=== PATIENT | male | born 1960 | race Caucasian/White ===

== ENCOUNTER 2021-03-04 12:28 | Observation (INO) | payer OTHER ==
[2021-03-04] MEDS ORDERED: SODIUM CHLORIDE 0.9% 1,000 ML IV ONE ×2 (12:41→13:57)
--- NOTE | 2021-03-04 12:49 | ED ---
General Adult HPI - General Chief complaint: Alcohol Stated complaint: ETOH Time Seen by Provider: 03/04/21 12:30 Source: patient, EMS, RN notes reviewed, old records reviewed Mode of arrival: EMS Limitations: no limitations - History of Present Illness Initial comments: This is a 60-year-old male who presents to the emergency department because he went to [facility] and wanted to be admitted but they felt as though he was too intoxicated. Patient admits to having drank a bunch of fireball and beer prior to going in because he wanted one more bolus prior to going to [facility] for rehabilitation. Patient denies headache patient denies numbness weakness. Patient denies lightheadedness or dizziness. Patient denies chest pain palpitations difficulty breathing shortness breath. Patient denies any recent fever chills or cough. Patient denies any nausea vomiting or diarrhea. - Related Data Allergies Allergy/AdvReac Type Severity Reaction Status Date / Time No Known Allergies Allergy Verified 03/04/21 12:41 Review of Systems ROS Statement: Those systems with pertinent positive or pertinent negative responses have been documented in the HPI. ROS Other: All systems not noted in ROS Statement are negative. Past Medical History Past Medical History: No Reported History History of Any Multi-Drug Resistant Organisms: None Reported Past Surgical History: Cholecystectomy Smoking Status: Current every day smoker Past Alcohol Use History: Abuse, Daily Past Drug Use History: None Reported General Exam - General Exam Comments Initial Comments: GENERAL: Patient is well-developed and well-nourished. Patient is nontoxic and well- hydrated and is in no acute distress. Patient appears intoxicated. ENT: Neck is soft and supple. No significant lymphadenopathy is noted. Oropharynx is clear. Moist mucous membranes. Neck has full range of motion without eliciting any pain. EYES: The sclera were anicteric and conjunctiva were pink and moist. Extraocular movements were intact and pupils were equal round and reactive to light. Eyelids were unremarkable. PULMONARY: Unlabored respirations. Good breath sounds bilaterally. No audible rales rhonchi or wheezing was noted. CARDIOVASCULAR: There is a regular rate and rhythm without any murmurs gallops or rubs. ABDOMEN: Soft and nontender with normal bowel sounds. SKIN: Skin is clear with no lesions or rashes and otherwise unremarkable. NEUROLOGIC: Patient is alert and oriented x3. Cranial nerves II through XII are grossly intact. Motor and sensory are also intact. Normal speech, volume and content. Symmetrical smile. MUSCULOSKELETAL: Normal extremities with adequate strength and full range of motion. LYMPHATICS: No significant lymphadenopathy is noted PSYCHIATRIC: Normal psychiatric evaluation. Limitations: no limitations Course Vital Signs 03/04/21 12:31 Temperature 98.1 F Pulse Rate 80 Respiratory 17 Rate Blood Pressure 137/84 O2 Sat by Pulse 97 Oximetry Medical Decision Making - Medical Decision Making Patient was given a liter of normal saline. Patient was started on a banana bag at 250 mL an hour. Patient was also given Ativan. I spoke with some physicians agreed to admit the patient admitted the patient wrote admitting orders. - Lab Data Result diagrams: 03/04/21 12:53 03/04/21 12:53 Lab Results 03/04/21 03/04/21 03/04/21 Range/Units 12:53 12:53 12:53 WBC 8.8 (3.8-10.6) k/uL RBC 4.18 L (4.30-5.90) m/uL Hgb 14.0 (13.0-17.5) gm/dL Hct 39.5 (39.0-53.0) % MCV 94.5 (80.0-100.0) fL MCH 33.4 (25.0-35.0) pg MCHC 35.3 (31.0-37.0) g/dL RDW 12.5 (11.5-15.5) % Plt Count 167 (150-450) k/uL MPV 7.3 Neutrophils % 49 % Lymphocytes % 33 % Monocytes % 9 % Eosinophils % 5 % Basophils % 1 % Neutrophils # 4.4 (1.3-7.7) k/uL Lymphocytes # 2.9 (1.0-4.8) k/uL Monocytes # 0.8 (0-1.0) k/uL Eosinophils # 0.5 (0-0.7) k/uL Basophils # 0.1 (0-0.2) k/uL Sodium 139 (137-145) mmol/L Potassium 3.4 L (3.5-5.1) mmol/L Chloride 106 (98-107) mmol/L Carbon Dioxide 25 (22-30) mmol/L Anion Gap 8 mmol/L BUN 13 (9-20) mg/dL Creatinine 0.71 (0.66-1.25) mg/dL Est GFR (CKD-EPI)AfAm >90 (>60 ml/min/1.73 sqM) Est GFR (CKD-EPI)NonAf >90 (>60 ml/min/1.73 sqM) Glucose 106 H (74-99) mg/dL Calcium 7.8 L (8.4-10.2) mg/dL Total Bilirubin 0.7 (0.2-1.3) mg/dL AST 82 H (17-59) U/L ALT 61 H (4-49) U/L Alkaline Phosphatase 77 (38-126) U/L Total Protein 6.7 (6.3-8.2) g/dL Albumin 3.7 (3.5-5.0) g/dL Serum Alcohol 320 H* mg/dL Coronavirus (PCR) Not Detected (Not Detectd) Disposition Clinical Impression: Alcohol intoxication Disposition: ADMITTED IP TO THIS [facility] Referrals: None,Stated [Primary Care Provider] - 1-2 days Time of Disposition: 13:56
[2021-03-04] MEDS ORDERED: SODIUM CHLORIDE 0.9% 1,000 ML with MVI, ADULT NO.4 WITH VIT K 10 ML, THIAMINE 100 MG, F... IV ONE ×4 (13:00)
[2021-03-04 13:13] LABS: Basophils # (A) 0.1 k/uL (0-0.2); Basophils % (A) 1 %; Eosinophils # (A) 0.5 k/uL (0-0.7); Eosinophils % (A) 5 %; HCT 39.5 % (39.0-53.0); Lymphocytes # (A) 2.9 k/uL (1.0-4.8); Lymphocytes % (A) 33 %; MCH 33.4 pg (25.0-35.0); MCHC 35.3 g/dL (31.0-37.0); MCV 94.5 fL (80.0-100.0); Mean Platelet Volume 7.3; Monocytes # (A) 0.8 k/uL (0-1.0); Monocytes % (A) 9 %; Neutrophils # (A) 4.4 k/uL (1.3-7.7); Neutrophils % (A) 49 %; Platelet Count 167 k/uL (150-450); RBC 4.18 m/uL (4.30-5.90); RDW 12.5 % (11.5-15.5); WBC 8.8 k/uL (3.8-10.6)
[2021-03-04 13:27] LABS: ALT 61 U/L (4-49); AST 82 U/L (17-59); African American GFR (CKD) >90 (>60 ml/min/1.73 sqM); Albumin 3.7 g/dL (3.5-5.0); Alkaline Phosphatase 77 U/L (38-126); Anion Gap 8 mmol/L; Blood Urea Nitrogen 13 mg/dL (9-20); Calcium 7.8 mg/dL (8.4-10.2); Carbon Dioxide 25 mmol/L (22-30); Chloride 106 mmol/L (98-107); Glucose 106 mg/dL (74-99); Non-African American GFR(CKD) >90 (>60 ml/min/1.73 sqM); Potassium 3.4 mmol/L (3.5-5.1); Sodium 139 mmol/L (137-145); Total Bilirubin 0.7 mg/dL (0.2-1.3); Total Protein 6.7 g/dL (6.3-8.2)
[2021-03-04 13:53] LABS: Alcohol 320 mg/dL
[2021-03-04] MEDS ORDERED: LORazepam 2 MG/ML INJ IV STA (13:58)
[2021-03-04] MEDS ORDERED: THIAMINE 100 MG/ML 2 ML VIAL IM STA (13:58)
[2021-03-04] MEDS ORDERED: LORazepam 2 MG/ML INJ IV PRN ×2 (13:58)
[2021-03-04] MEDS ORDERED: DEXTROSE 5%-0.45% NACL 2,000 ML IV ONE (14:41)
[2021-03-04] MEDS ORDERED: POTASSIUM CHLORIDE ER 20 MEQ TAB.ER PO STA (14:43)
--- NOTE | 2021-03-04 14:46 | P.HPIM ---
History of Present Illness H&P Date: 03/04/21 Chief Complaint: Alcohol intoxication This is a 60-year-old male with no significant past medical history other than heavy alcohol abuse who presented to the emergency room with alcohol intoxication. Patient said that he usually drinks approximately 7-8 beers per day. He tried to cut down recently been started having shaking at home. He went to [place] today seeking had that was found to have an elevated blood alcohol level and was sent to the emergency room. Patient is otherwise feeling well. He does not have any symptoms of withdrawal at this time. He denies any headache or abdominal pain. He does not take any prescription medication at home. He denies any known medical history. He smokes approximately one pack of cigarettes per day. Lab work in the emergency room was within acceptable range. Patient will be placed on observation Review of Systems Review of system: 14 points review of systems were obtained and were negative except to what were mentioned in the HPI. Past Medical History Past Medical History: No Reported History History of Any Multi-Drug Resistant Organisms: None Reported Past Surgical History: Cholecystectomy Smoking Status: Current every day smoker Past Alcohol Use History: Abuse, Daily Past Drug Use History: None Reported Medications and Allergies Home Medications Medication Instructions Recorded Confirmed Type No Known Home Medications 03/04/21 03/04/21 History Allergies Allergy/AdvReac Type Severity Reaction Status Date / Time No Known Allergies Allergy Verified 03/04/21 14:10 Physical Exam Vitals: Vital Signs Temp Pulse Resp BP Pulse Ox 03/04/21 12:31 98.1 F 80 17 137/84 97 Intake and Output 03/03/21 03/04/21 03/04/21 22:59 06:59 14:59 Other: Weight 90.718 kg General: The patient is awake and alert, in no distress Eye: there is normal conjunctiva bilaterally. Neck: The neck is supple, there is no JVD. Cardiovascular: Normal S1-S2, no S3-S4, no murmurs. Respiratory: Lungs clear to auscultation bilaterally Gastrointestinal: Abdomen is soft, nontender Musculoskeletal: There is no pedal edema. Neurological:. Speech is normal. Skin: Skin is warm and dry Results CBC & Chem 7: 03/04/21 12:53 03/04/21 12:53 Labs: Abnormal Lab Results - Last 24 Hours (Table) 03/04/21 03/04/21 Range/Units 12:53 12:53 RBC 4.18 L (4.30-5.90) m/uL Potassium 3.4 L (3.5-5.1) mmol/L Glucose 106 H (74-99) mg/dL Calcium 7.8 L (8.4-10.2) mg/dL AST 82 H (17-59) U/L ALT 61 H (4-49) U/L Serum Alcohol 320 H* mg/dL Assessment and Plan Assessment: This is a 60-year-old male with no significant past medical history other than daily alcohol abuse who presented to the emergency room with alcohol intoxication. Patient was evaluated in the ER and will be placed in observation for further management of his medical problems noted below. 1. Alcohol intoxication, patient received 1.5 L of fluid in the ER. I would continue with D5/half-normal saline at 125 mL per hour. Valium 5 mg twice daily. Ativan as needed per [facility] protocol. Multivitamins 2. Heavy alcohol abuse: Counseled extensively to quit. Patient is willing to go to [place] when medically clear 3. Tobacco abuse: Counseled extensively to quit 4. Hypokalemia, replacement ordered. I would recheck lab work in the morning 5. DVT prophylaxis with subcu Lovenox
[2021-03-04] MEDS: THIAMINE 100 MG TAB PO SCH (17:06)
[2021-03-04] MEDS ORDERED: diazePAM 5 MG TAB PO SCH (21:00)
[2021-03-05] MEDS: LORazepam 2 MG/ML INJ IV PRN ×2 (00:29→04:32)
[2021-03-05] MEDS ORDERED: diazePAM 5 MG TAB PO STA (08:26)
[2021-03-05] MEDS: ENOXAPARIN 40 MG/0.4 ML SYRINGE SQ SCH (08:32)
[2021-03-05] MEDS: THIAMINE 100 MG TAB PO SCH ×2 (08:32→17:36)
[2021-03-05] MEDS: SODIUM CHLORIDE 0.9% 1,000 ML IV SCH (10:34)
[2021-03-05 12:31] VITALS: BMI 29.5
--- NOTE | 2021-03-05 13:17 | P.PN ---
Subjective Progress Note Date: 03/05/21 Patient is doing fairly well today. He is having significant shaking and evidence of withdrawal. He received a one-time dose of IV Ativan overnight per protocol. He denies nausea or vomiting otherwise. Objective - Vital Signs Vital signs: Vital Signs Temp 98.0 F 03/05/21 07:33 Pulse 76 03/05/21 07:33 Resp 18 03/05/21 07:33 BP 179/103 03/05/21 07:33 Pulse Ox 96 03/05/21 07:33 Intake & Output 03/04/21 03/05/21 03/05/21 18:59 06:59 18:59 Intake Total 240 Balance 240 Weight 90.718 kg 90.718 kg Intake: Oral 240 Other: Voiding Method Toilet # Voids 1 - Exam General: The patient is awake and alert, in no distress Eye: there is normal conjunctiva bilaterally. Neck: The neck is supple, there is no JVD. Cardiovascular: Normal S1-S2, no S3-S4, no murmurs. Respiratory: Lungs clear to auscultation bilaterally Gastrointestinal: Abdomen is soft, nontender Musculoskeletal: There is no pedal edema. Neurological:. Speech is normal. Skin: Skin is warm and dry - Labs CBC & Chem 7: 03/04/21 12:53 03/05/21 08:55 Labs: Abnormal Lab Results - Last 24 Hours (Table) 03/04/21 Range/Units 12:53 Potassium 3.4 L (3.5-5.1) mmol/L Glucose 106 H (74-99) mg/dL Calcium 7.8 L (8.4-10.2) mg/dL AST 82 H (17-59) U/L ALT 61 H (4-49) U/L Serum Alcohol 320 H* mg/dL Assessment and Plan Assessment: This is a 60-year-old male with no significant past medical history other than daily alcohol abuse who presented to the emergency room with alcohol intoxicat ion. Patient was evaluated in the ER and will be placed in observation for further management of his medical problems noted below. 1. Alcohol intoxication, now sober. Patient received aggressive IV fluid hydration since admission. Ativan as needed per [facility] protocol. Multivitamins 2. Heavy alcohol abuse: Counseled extensively to quit. Patient is willing to go to [place] when medically clear 3. Tobacco abuse: Counseled extensively to quit 4. Hypokalemia, replaced 5. DVT prophylaxis with subcu Lovenox I would increase Valium dose to 10 mg twice daily. Continue to monitor for 24 hours. Anticipate discharge tomorrow.
[2021-03-05] MEDS: diazePAM 5 MG TAB PO SCH (22:01)
[2021-03-06] MEDS: SODIUM CHLORIDE 0.9% 1,000 ML IV SCH ×2 (05:34→07:25)
[2021-03-06] MEDS: THIAMINE 100 MG TAB PO SCH ×2 (07:38→17:26)
[2021-03-06] MEDS: diazePAM 5 MG TAB PO SCH ×2 (07:38→19:34)
[2021-03-06] MEDS ORDERED: lisinopriL 10 MG TAB PO STA (09:04)
--- NOTE | 2021-03-06 09:09 | P.DS ---
Providers Date of admission: 03/04/21 13:57 Expected date of discharge: 03/06/21 Attending physician: Julio Nicholson Primary care physician: Stated None Hospital Course: This is a 60-year-old male with no significant past medical history other than daily alcohol abuse who presented to the emergency room with alcohol intoxication. Patient was evaluated in the ER and will be placed in observation for further management of his medical problems noted below. 1. Alcohol intoxication, now sober. Patient received aggressive IV fluid hydration since admission. Ativan as needed per [facility] protocol. Multivitamins 2. Heavy alcohol abuse: Counseled extensively to quit. Patient is willing to go to [place] when medically clear 3. Tobacco abuse: Counseled extensively to quit 4. Hypokalemia, replaced Patient will be prescribed Valium 5 mg twice a day to prevent any symptoms of withdrawal. He has a bed at [place]. He will be discharged in stable condition. Patient Condition at Discharge: Stable Plan - Discharge Summary Discharge Rx Participant: No New Discharge Prescriptions: New Lisinopril [Prinivil] 10 mg PO DAILY #30 tab diazePAM [Valium] 5 mg PO BID #6 tab Discharge Medication List Lisinopril [Prinivil] 10 mg PO DAILY #30 tab 03/06/21 [Rx] diazePAM [Valium] 5 mg PO BID #6 tab 03/06/21 [Rx] Follow up Appointment(s)/Referral(s): None,Stated [Primary Care Provider] - 1-2 days Activity/Diet/Wound Care/Special Instructions: pt has a bed a [facility] - nurse to call report on day of d/c. after report is given ask [facility] to send a cdl a driver to pick the pt up. Discharge Disposition: HOME SELF-CARE
[2021-03-06] MEDS: ENOXAPARIN 40 MG/0.4 ML SYRINGE SQ SCH (09:33)
[2021-03-06] MEDS ORDERED: NICOTINE 14MG/24HR PATCH TRANSDERM STA (19:39)
[2021-03-06] MEDS ORDERED: NICOTINE POLACRILEX 2 MG GUM BUCCAL PRN (19:39)
[2021-03-07] MEDS: SODIUM CHLORIDE 0.9% 1,000 ML IV SCH (03:13)
[2021-03-07 03:30] VITALS: BP 119/69; PULSE 64; RESP 18; TEMP 98.5
== END 2021-03-07 07:50 | disposition home or self-care (01) ==
LOC: EC 12:28 → 6NMEDSUR 13:57
PROVIDERS: ADMIT Internal Medicine; ATTEND Internal Medicine
DX: F10.129 Alcohol abuse with intoxication, unspecified (principal); F10.139 Alcohol abuse with withdrawal, unspecified; E87.6 Hypokalemia; F17.210 Nicotine dependence, cigarettes, uncomplicated; Z20.822 Contact with and (suspected) exposure to COVID-19; Z90.49 Acquired absence of other specified parts of digestive tract; Y90.8 Blood alcohol level of 240 mg/100 ml or more
CPT/HCPCS: 96376 ×2; 96361 ×3; 96372 ×3; 96374; 99285; 36415; 80053; 83735; 84132; 85025; 87635; G0378 ×4; G0480; S4990; J2060 ×2; J3411; J1650 ×2; 80320